=== PATIENT | female | born 1970 | race Caucasian/White ===

== ENCOUNTER 2018-05-31 19:41 | Observation (INO) | payer OTHER, SELFPAY ==
[2018-05-31 19:53] VITALS: BP 152/115; PULSE 108; RESP 16; TEMP 36.7; O2SAT 96; BMI 31.6
--- NOTE | 2018-05-31 20:08 | DI.RAD.S_ITS ---
PROCEDURE: XR CHEST 1V INDICATIONS: chest pain TECHNIQUE: One view of the chest was acquired. COMPARISON: None. FINDINGS: Surgical changes and devices: None. Lungs and pleura: No pleural effusions or pneumothorax. Small calcified granuloma is seen in right lower lung field. No focal infiltrate. Mediastinum: Mediastinal contours appear normal. Heart size is normal. Bones and chest wall: No suspicious bony lesions. Overlying soft tissues appear unremarkable. IMPRESSION: No acute cardiopulmonary pathology. Dictated by: Felix Blanchard M.D. on 05/31/2018 at 20:24 Approved by: Felix Blanchard M.D. on 05/31/2018 at 20:24
--- NOTE | 2018-05-31 20:17 | ED_ITS ---
HPI - Arrhythmia/Palpitations General Chief Complaint: Arrhythmia/Palpitations Stated Complaint: ELEVATED HEARTRATE Time Seen by Provider: 05/31/18 20:02 Source: patient Mode of arrival: ambulatory Limitations: no limitations History of Present Illness HPI narrative: The patient is a 47-year-old female who presents with heart palpitations. She says that she has been monitoring her heart rate she has not felt well all day it is not been below 100 in fact it has been staying around on 110. She wakes up every day with numbness and tingling in both arms. She denies any shortness of breath on exertion. She has been feeling some palpitations off and on today no dizziness or lightheadedness. She has been having some episodes of chest discomfort off and on for awhile. Not truly associated with anything. Today she was worried because her heart she felt was beating faster. She has not had fever cough nausea or vomiting no abdominal pain. She has no prior history of cardiac disease. She states that she used to take lisinopril for blood pressure however she lost weight and no longer takes it however she gained weight back. MD complaint: palpitations Treatments prior to arrival: other (Aspirin at 1000 mg this am) Related Data Home Medications Medication Instructions Recorded Confirmed No Known Home Medications 05/31/18 05/31/18 Review of Systems Review of Systems All systems reviewed & are unremarkable except as noted in HPI and below Constitutional Denies chills, Denies fever(s), Denies lethargy and Denies weakness Cardiovascular Reports as per HPI, Denies dyspnea and Denies dyspnea on exertion Respiratory Denies cough, Denies dyspnea, Denies dyspnea on exertion and Denies wheezing Gastrointestinal Gastrointestinal: Denies abdominal pain, Denies change in bowel habits, Denies diarrhea, Denies nausea and Denies vomiting Musculoskeletal Denies back pain, Denies muscle weakness, Denies numbness and Denies tingling Integumentary/Breasts Denies pruritus, Denies erythema, Denies rash and Denies wounds Neurologic Denies numbness, Denies tingling and Denies weakness Allergic/Immunologic Denies wheezing PFSH Family History Mother Myocardial infarction Social History household members: spouse and children Smoking Status: Former smoker alcohol intake: current Exam Initial Vital Signs Initial Vital Signs: Vital Signs Temperature 98.0 F 05/31/18 19:53 Pulse Rate 108 H 05/31/18 19:53 Respiratory Rate 16 05/31/18 19:53 Blood Pressure 152/115 H 05/31/18 19:53 Pulse Oximetry 96 05/31/18 19:53 GENERAL: Alert overweight female in no acute distress HEENT: Head atraumatic,EOMI, pupils reactive, CARDIOVASCULAR: Regular rate and rhythm without murmurs, rubs or gallops. RESPIRATORY: Breath sounds equal bilaterally, no wheezes rales or rhonchi. ABDOMEN: Soft, nontender. Normoactive bowel sounds all 4 quadrants. No guarding or rebound. EXTREMITIES: Normal range of motion, no clubbing or edema. Neurovascularly intact NEUROLOGICAL: Alert and oriented x4.Normal gait and speech. Cranial nerves II through XII grossly intact. SKIN: Warm, dry, no laceration, no petechiae, no rashes or lesions. Scores HEART Score Heart Score history: Slightly Suspicious Heart Score EKG: Significant ST depression Heart Score Age: 45-64 years old Heart Score risk factors: 1-2 risk factors Heart Score troponin: < or = to normal limit Heart Score Total: 4 PERC Score Age greater than or equal to 50 years: No Heart rate greater than or equal to 100 bpm: Yes Room Air O2 Sat less than 95%: No Unilateral leg swelling: No Recent trauma or surgery: No Hemoptysis: No Prior PE or DVT: No Hormone Use: No Total PERC Score: 1 Wells' Criteria for PE Clinical signs and symptoms of PE: No PE is #1 Dx or equally likely: No Heart rate > 100: Yes Immobilization at least 3 days or surg in previous 4 weeks: No History of PE or DVT: No Hemoptysis: No Malignancy w/Treatment within 6 months or palliative: No Wells' PE Score total: 1.5 Course Orders Ordered: ED Orders 05/31/18 20:08 XR chest 1V Stat EKG-12 Lead Stat 05/31/18 20:10 B Type Natriuretic Peptide Stat Complete Blood Count AUTO DIFF Stat Comprehensive Metabolic Panel Stat D Dimer Stat Lipase Stat Partial Thromboplastin Time Stat Prothrombin Time INR Stat Troponin & CK Cardiac Panel Stat 06/01/18 00:23 Consult to Physician Routine Discontinued Medications Aspirin (Aspirin Chew) 324 mg PO NOW ONE Stop: 05/31/18 20:08 Last Admin: 05/31/18 20:54 Dose: Sodium Chloride (Normal Saline 0.9%) 1,000 mls @ 1,000 mls/hr IV CONT BEVERLY Last Infusion: 05/31/18 23:11 Dose: 0 mls/hr Admin: 05/31/18 20:54 Dose: 1,000 mls/hr Ketorolac Tromethamine (Toradol) 30 mg IV NOW ONE Stop: 05/31/18 22:25 Last Admin: 05/31/18 22:28 Dose: 30 mg Vital Signs - 8 hr 05/31/18 19:53 05/31/18 21:05 05/31/18 21:30 Temperature 98.0 F Pulse Rate 108 H 104 H 94 H Respiratory Rate 16 12 18 Blood Pressure 152/115 H Blood Pressure [Left Arm] 147/95 H 125/84 H Pulse Oximetry 96 96 98 05/31/18 22:24 05/31/18 23:02 06/01/18 00:22 Temperature Pulse Rate 97 H 90 88 Respiratory Rate 14 18 Blood Pressure 144/80 H Blood Pressure [Left Arm] 137/77 H 144/70 H Pulse Oximetry 96 100 99 06/01/18 00:47 Temperature 98.1 F Pulse Rate 91 H Respiratory Rate 16 Blood Pressure 147/96 H Blood Pressure [Left Arm] Pulse Oximetry 97 MDM - Arrhythmia/Palpitations Lab Data Attestation: I reviewed the patient's lab results. Result diagrams: 05/31/18 20:10 05/31/18 20:10 Lab Results 05/31/18 05/31/18 05/31/18 Range/Units 20:10 20:10 20:10 WBC 8.0 (4.5-11.0) X10^3/uL RBC 5.03 (4.0-5.2) X10^6/uL Hgb 14.9 (12.0-16.0) g/dL Hct 43.9 (36-46) % MCV 87.2 (80-100) fL MCH 29.6 (26-34) PG MCHC 34.0 (30-36) % RDW 13.6 (11.6-14.8) % Plt Count 233 (150-400) X10^3/uL Neut % (Auto) 57.6 (50-75) % Lymph % (Auto) 33.8 (25-40) % Mellette % (Auto) 6.0 (3-14) % Eos % (Auto) 2.0 (2-4) % Baso % (Auto) 0.6 (0-2) % Neut # (Auto) 4600 (7622-8913) /uL PT 11.2 (10.1-12.7) SECONDS INR 1.0 (0.9-1.3) APTT 30 (26.4-36.2) SECONDS D-Dimer < 200 (<230) ng/mL Sodium (137-145) mmol/L Potassium (3.4-5.1) mmol/L Chloride (98-107) mmol/L Carbon Dioxide (22-32) mmol/L BUN (7-17) mg/dL Creatinine (0.52-1.04) mg/dL Estimated GFR (>60) mL/min BUN/Creatinine Ratio (6-22) Glucose (70-100) mg/dL Calcium (8.4-10.2) mg/dL Total Bilirubin (0.2-1.3) mg/dL AST (14-36) IU/L ALT (9-52) IU/L Alkaline Phosphatase (38-126) U/L Total Creatine Kinase (30-135) U/L CK-MB (CK-2) (<2.37) ng/mL CK-MB (CK-2) Rel Index (1.5-5.0) % Troponin I (0.01-0.034) ng/mL B-Natriuretic Peptide < 29.4 (<100) Total Protein (6.3-8.2) g/dL Albumin (3.5-5.0) g/dL Globulin (1.7-4.1) g/dL Albumin/Globulin Ratio (1.0-2.8) Lipase (23-300) U/L // Range/Units 20:10 WBC (4.5-11.0) X10^3/uL RBC (4.0-5.2) X10^6/uL Hgb (12.0-16.0) g/dL Hct (36-46) % MCV (80-100) fL MCH (26-34) PG MCHC (30-36) % RDW (11.6-14.8) % Plt Count (150-400) X10^3/uL Neut % (Auto) (50-75) % Lymph % (Auto) (25-40) % Mellette % (Auto) (3-14) % Eos % (Auto) (2-4) % Baso % (Auto) (0-2) % Neut # (Auto) (4801-6796) /uL PT (10.1-12.7) SECONDS INR (0.9-1.3) APTT (26.4-36.2) SECONDS D-Dimer (<230) ng/mL Sodium 144 (137-145) mmol/L Potassium 3.0 L (3.4-5.1) mmol/L Chloride 99 (98-107) mmol/L Carbon Dioxide 27 (22-32) mmol/L BUN 16 (7-17) mg/dL Creatinine 0.90 (0.52-1.04) mg/dL Estimated GFR > 60.0 (>60) mL/min BUN/Creatinine Ratio 17.8 (6-22) Glucose 89 (70-100) mg/dL Calcium 10.7 H (8.4-10.2) mg/dL Total Bilirubin 0.4 (0.2-1.3) mg/dL AST 41 H (14-36) IU/L ALT 37 (9-52) IU/L Alkaline Phosphatase 38 (38-126) U/L Total Creatine Kinase 211 H (30-135) U/L CK-MB (CK-2) 1.40 (<2.37) ng/mL CK-MB (CK-2) Rel Index 0.7 L (1.5-5.0) % Troponin I < 0.012 (0.01-0.034) ng/mL B-Natriuretic Peptide (<100) Total Protein 7.7 (6.3-8.2) g/dL Albumin 4.8 (3.5-5.0) g/dL Globulin 2.9 (1.7-4.1) g/dL Albumin/Globulin Ratio 1.7 (1.0-2.8) Lipase 138 (23-300) U/L Imaging Data Chest x-ray: Radiologist's impression: PROCEDURE: XR CHEST 1V INDICATIONS: chest pain TECHNIQUE: One view of the chest was acquired. COMPARISON: None. FINDINGS: Surgical changes and devices: None. Lungs and pleura: No pleural effusions or pneumothorax. Small calcified granuloma is seen in right lower lung field. No focal infiltrate. Mediastinum: Mediastinal contours appear normal. Heart size is normal. Bones and chest wall: No suspicious bony lesions. Overlying soft tissues appear unremarkable. IMPRESSION: No acute cardiopulmonary pathology. Dictated by: Felix Blanchard M.D. on 05/31/2018 at 20:24 ECG Data Attestation: I personally reviewed and interpreted this ECG as follows: Prior ECG tracings: available for review Interpretation: EKG 1.: Normal sinus rhythm, rate 116 be 1 through V5 with some ST depressions. Q-waves noted in lead 3 fascicular block no acute ST changes EKG 2.: Sinus rhythm rate 106 persistent T-wave inversions no acute ST elevations slightly improved from prior MDM Narrative Medical decision making narrative: Patient has been having chest discomfort off and on with increased palpitations today. EKG does have some T-wave inversions and ST depressions in precordial leads. She remains chest pain-free in the ED. Heart rate has decreased. Her D-dimer is negative and she is low risk for any PE. Her EKG is concerning there are no previous EKG. She does not have any ST elevations and her troponin is negative. She does have significant family history of mother. She also is obese. She states that she was taking lisinopril for hypertension however she lost weight 10 no longer is taking it. Unfortunately she did gain some of that weight back. Dr. Vaz, has been updated on test results and symptoms. Agrees with chest pain obvious Discharge Plan Departure Patient Disposition: Admitted as Observation Clinical Impression: Chest pain Discharge Date/Time: 06/01/18 00:25 Interventions: ED Discharge Assessment Last Done: 06/01/18 00:22 Admit Date/Time: 05/31/18 22:44 Admit Provider: Lasha Vuong
[2018-05-31 20:48] LABS: Add Manual Diff / Slide Review NO; Basophils Percent Auto 0.6 % (0-2); Hematocrit 43.9 % (36-46); Hemoglobin 14.9 g/dL (12.0-16.0); Lymphocytes Percent Auto 33.8 % (25-40); Mean Corpuscular Hemoglobin 29.6 PG (26-34); Mean Corpuscular Volume 87.2 fL (80-100); Neutrophils Absolute Auto 4600 /uL (3000-5900); Neutrophils Percent Auto 57.6 % (50-75); Platelet Count 233 X10^3/uL (150-400); Red Blood Cell Count 5.03 X10^6/uL (4.0-5.2); Red Cell Distribution Width 13.6 % (11.6-14.8)
[2018-05-31] MEDS: SODIUM CHLORIDE 0.9% 1,000 ML 1000 ML IV (20:54)
[2018-05-31 20:58] LABS: Prothrombin Time 11.2 SECONDS (10.1-12.7)
[2018-05-31 21:00] LABS: PTT Partial Thromboplastin Tim 30 SECONDS (26.4-36.2)
[2018-05-31 21:05] VITALS: BP 147/95; PULSE 104; RESP 12; O2SAT 96
[2018-05-31 21:07] LABS: D Dimer < 200 ng/mL (<230)
[2018-05-31 21:08] LABS: Alanine Aminotransferase 37 IU/L (9-52); Albumin 4.8 g/dL (3.5-5.0); Albumin Globulin Ratio 1.7 (1.0-2.8); Alkaline Phosphatase 38 U/L (38-126); Aspartate Aminotransferase 41 IU/L (14-36); BUN Creatinine Ratio 17.8 (6-22); Bilirubin Total 0.4 mg/dL (0.2-1.3); Blood Urea Nitrogen 16 mg/dL (7-17); Calcium 10.7 mg/dL (8.4-10.2); Carbon Dioxide 27 mmol/L (22-32); Chloride 99 mmol/L (98-107); Creatine Kinase 211 U/L (30-135); Estimated Glomerular Filt Rate > 60.0 mL/min (>60); Globulin 2.9 g/dL (1.7-4.1); Glucose 89 mg/dL (70-100); HEMOLYSIS < 15 (0-50); Lipase 138 U/L (23-300); Sodium 144 mmol/L (137-145); Total Protein 7.7 g/dL (6.3-8.2)
[2018-05-31 21:14] LABS: B Type Natriuretic Peptide < 29.4 (<100)
[2018-05-31 21:24] LABS: CKMB % Relative Index 0.7 % (1.5-5.0)
[2018-05-31 21:25] LABS: Troponin I < 0.012 ng/mL (0.01-0.034)
[2018-05-31 21:30] VITALS: BP 125/84; PULSE 94; RESP 18; O2SAT 98
[2018-05-31 22:24] VITALS: BP 137/77; PULSE 97; O2SAT 96
[2018-05-31] MEDS: KETOROLAC 60 MG/2 ML VIAL 30 MG IV (22:28)
[2018-05-31 23:02] VITALS: BP 144/70; PULSE 90; RESP 14; O2SAT 100
[2018-06-01] VITALS (9 sets, daily range): BP systolic 122–147; BP diastolic 65–97; PULSE 68–91; RESP 16–18; TEMP 36.5–36.7; O2SAT 94–99; BMI 39.3
--- NOTE | 2018-06-01 02:07 | PC.ADMIT ---
Addendum entered by Lucinda Grimm R.N. 06/01/18 06:33: Slept at intervals. States headache and left chest pain continues to be 2/10 but states is tolerable. Up in room independently. 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 Patient's smoking status: Former smoker. Vital Signs - 8 hr 05/31/18 19:53 05/31/18 21:05 05/31/18 21:30 Temperature 98.0 F Pulse Rate 108 H 104 H 94 H Respiratory Rate 16 12 18 Blood Pressure 152/115 H Blood Pressure [Left Arm] 147/95 H 125/84 H Pulse Oximetry 96 96 98 05/31/18 22:24 05/31/18 23:02 06/01/18 00:22 Temperature Pulse Rate 97 H 90 88 Respiratory Rate 14 18 Blood Pressure 144/80 H Blood Pressure [Left Arm] 137/77 H 144/70 H Pulse Oximetry 96 100 99 06/01/18 00:47 Temperature 98.1 F Pulse Rate 91 H Respiratory Rate 16 Blood Pressure 147/96 H Blood Pressure [Left Arm] Pulse Oximetry 97 Admitted to room 210 per wheelchair from ER. Is alert and oriented. Breath sounds CTA with RA sat of 97%. HRR; connected to telemetry. Denies nausea. BT present and abdomen is soft. Denies dysuria or incontinence. Independent with mobility. Having 1-2/10 left sided headache and chest discomfort but states it is tolerable. Fall risk score is medium; bed alarm not used but reminded patient to call for assist when out of bed if experiencing any palpitations, dizziness or lightheadedness; verbalizes understanding.
--- NOTE | 2018-06-01 09:02 | PM.HP.1 ---
History of Present Illness Date Patient Seen: 06/01/18 Time Patient Seen: 08:03 Chief complaint: ELEVATED HEART RATE Narrative: THIS 47-YEAR-OLD LADY CAME TO THE ER BECAUSE SHE FOUND THE WRIST WATCH THE MONITORS HER HEART RATE SHOWED A HIGH RATE OF 146 SHE HAD JUST BEEN MOWING THE YARD WITH A PUSH MOWER NOTED SELF-PROPELLED SHE ALSO COMPLAINS OF SOME CHEST PAIN ACROSS THE FRONT OF THE CHEST NO RADIATION SHE IS WORRIED BECAUSE HER MOTHER HAD HYPERTENSION AND CARDIAC ARREST AT THE AGE OF 51 FOR A GRANDMOTHER HAD A QUADRUPLE BYPASS AT IN THE MID 50S CURRENTLY SHE COMPLAINS OF PERSISTENT CONTINUOUS PAIN IN THE CHEST THOUGH SHE DOES NOT APPEAR TO BE IN ANY DISTRESS SHE IS A NONSMOKER Patient History Family & Social History Family History: Reviewed 06/01/18 by Lasha Vuong MD Social History: household members spouse,children Prior Living Arrangements House Safety & Behavioral: Feels Safe in Current Yes Environment Been Physically Hurt or No Threatened By a Person Suicidal Ideation Description None Suicide Plan Description No Plan Tobacco & Substance use: Smoking Status Former smoker alcohol intake current alcohol intake frequency a few times a week Substance Use Type does not use Meds Home Medications Medication Instructions Recorded Confirmed Type No Known Home Medications 05/31/18 05/31/18 History Review of Systems Review of Systems All systems reviewed & are unremarkable except as noted in HPI and below Exam Vital Signs (past 8 hours): - 06/01/18 06:01 06/01/18 07:45 Temperature 98.0 F 98.0 F Pulse Rate 78 68 Respiratory Rate 16 16 Blood Pressure 144/85 H 146/97 H Pulse Oximetry 97 98 Oxygen Delivery Method Room Air Oxygen Flow Rate 0 Const General: cooperative, healthy appearing, comfortable and well developed [facility] Head: normal to inspection, normocephalic and atraumatic Ears: hearing grossly normal bilaterally Nose: external nose normal Face and sinus: normal facial exam Eyes General: appearance normal, both eyes and all related structures Eyelids: eyelids normal Conjunctivae: conjunctivae normal Sclera: sclerae normal Pupils: PERRL EOM: EOM intact bilaterally Neck Neck: normal visual inspection Thyroid: thyroid normal Resp Effort & Inspection: normal respiratory effort and able to speak in complete sentences Auscultation: clear to auscultation bilaterally Cardio Palpation: normal PMI Rate: regular rate Rhythm: regular rhythm Heart Sounds: S1 normal and S2 normal GI Inspection: normal to inspection Palpation: soft Back/Spine/Pelvis Back: normal to inspection Skin General: no rashes or lesions noted Neuro General: alert, awake and oriented x3 Cranial Nerves: CN's II-XI intact bilaterally Cognition: normal cognition Speech: speech normal Motor: muscle tone normal throughout Extrem General: normal to inspection Psych Appearance: grossly normal Mood: congruent mood Affect: normal affect Attitude: cooperative Thought Process: normal Thought Content: normal Judgment: judgment good Objective Labs Result Diagrams: 05/31/18 20:10 05/31/18 20:10 Labs: Laboratory Results - last 24 hr 05/31/18 05/31/18 05/31/18 20:10 20:10 20:10 WBC 8.0 RBC 5.03 Hgb 14.9 Hct 43.9 MCV 87.2 MCH 29.6 MCHC 34.0 RDW 13.6 Plt Count 233 Neut % (Auto) 57.6 Lymph % (Auto) 33.8 Baker % (Auto) 6.0 Eos % (Auto) 2.0 Baso % (Auto) 0.6 Neut # (Auto) 4600 PT 11.2 INR 1.0 APTT 30 D-Dimer < 200 Sodium Potassium Chloride Carbon Dioxide BUN Creatinine Estimated GFR BUN/Creatinine Ratio Glucose Calcium Total Bilirubin AST ALT Alkaline Phosphatase Total Creatine Kinase CK-MB (CK-2) CK-MB (CK-2) Rel Index Troponin I B-Natriuretic Peptide < 29.4 Total Protein Albumin Globulin Albumin/Globulin Ratio Lipase 05/31/18 20:10 WBC RBC Hgb Hct MCV MCH MCHC RDW Plt Count Neut % (Auto) Lymph % (Auto) Baker % (Auto) Eos % (Auto) Baso % (Auto) Neut # (Auto) PT INR APTT D-Dimer Sodium 144 Potassium 3.0 L Chloride 99 Carbon Dioxide 27 BUN 16 Creatinine 0.90 Estimated GFR > 60.0 BUN/Creatinine Ratio 17.8 Glucose 89 Calcium 10.7 H Total Bilirubin 0.4 AST 41 H ALT 37 Alkaline Phosphatase 38 Total Creatine Kinase 211 H CK-MB (CK-2) 1.40 CK-MB (CK-2) Rel Index 0.7 L Troponin I < 0.012 B-Natriuretic Peptide Total Protein 7.7 Albumin 4.8 Globulin 2.9 Albumin/Globulin Ratio 1.7 Lipase 138 Assessment & Plan Plan: Assessment/Plan Narrative: CHEST PAIN AND PALPITATIONS WITH TACHYCARDIA AND TROPONINS NEGATIVE POSITIVE FAMILY HISTORY OF EARLY CORONARY ARTERY DISEASE WILL LET IT GET A NUCLEAR MED MYOCARDIAL PERFUSION SCAN OBESITY WILL RECOMMEND WEIGHT LOSS Time Spent With Patient Time with patient: Greater than 35 minutes
[2018-06-01] MEDS: SODIUM CHLORIDE 0.9% FLUSH 10 ML IV ×2 (09:13→20:22)
[2018-06-01] MEDS: ENOXAPARIN 40 MG/0.4 ML SYRINGE SUBCUT (09:13)
--- NOTE | 2018-06-01 11:44 | CM.DANOTE ---
DCP Chart Review Patient is a 47 year old female who was admitted OBS STATUS on 05/31/18 for Elevated Heart Rate. Pt has [employer] for insurance and her PCP is not listed. EMR was reviewed. Per MD, pt to have stress test ordered today due to family hx. Plan: SW to follow after stress test to determine if pt is safe for d/c home when medically stable. No SW needs at this time, please refer if indicated. DIEGO Steinre
--- NOTE | 2018-06-01 13:43 | P.PCN_ITS ---
Cardiac Stress Test Report Referral & Results Date Patient Seen: 06/01/18 Time Patient Seen: 13:42 Indication: Palpitations/chest pain Rest ECG: Unremarkable Procedure Note: Today following both written and verbal informed consent the patient was exercised according to a standard Koko protocol patient went for a total of 8 min 13 sec achieving a maximum heart rate of 150 to maximum systolic blood pressure of 200. This is approximately 10.1 METS. Exercise was terminated at this point because of targets having been met. Patient was also given Cardiolite through a previously started Hep-Lock IV by the nuclear criticality safety engineer approximately 1 minute prior to the cessation of exercise. There are no ST segment changes noted Normal heart rate response to exercise Patient was hypertensive to start remained hypertensive throughout No dysrhythmias were identified Functional aerobic impairment rated-10% on the sedentary scale or 10% better than average Impression: No evidence of ischemia Hypertension that probably should be addressed No dysrhythmias Perfusion imaging will be reported separately Please note: Actual ECG tracings can be found in the PACS system.
[2018-06-01] MEDS: LORazepam 2 MG/ML SYRINGE 1 MG IV ×2 (14:33→15:10)
--- NOTE | 2018-06-01 15:45 | PC.NURSE ---
1510 Received call from Student Records Specialist to inform this RN that pt needed additional dose of ativan IV. Pt had been given IV ativan at 1425 in anticipation of Nuc med scan (pt had been unable to do scan earlier in the day d/t severe clausterphobia). Ativan IV 1 mg administered without incident. Pt now returned to floor, A and O x3.
[2018-06-02] VITALS (7 sets, daily range): BP systolic 139–161; BP diastolic 83–95; PULSE 70–81; RESP 16; TEMP 36.7–36.8; O2SAT 97–100
--- NOTE | 2018-06-02 03:18 | PC.NURSE ---
Addendum entered by Lucinda Grimm R.N. 06/02/18 06:02: Head/chest pain remains unchanged but states pain is tolerable. Up independently to the bathroom. Has been NPO since 414 for reported additional stress testing this morning. Original Note: Sleeping soundly since start of shift. Now awakened for assessment. Is alert and oriented. Breath sounds CTA with RA sat of 99%. HRR with 0000 telemetry reading of SR. Denies nausea. BT present and abdomen is soft. Independent with mobility. Does admit to intermittent left chest/left sided headache but has only Morphine ordered for pain and declines to have MD contacted for Tylenol order. Fall risk score is medium but bed alarm is not felt to be needed at this time.
[2018-06-02] MEDS: ENOXAPARIN 40 MG/0.4 ML SYRINGE SUBCUT (09:20)
[2018-06-02] MEDS: SODIUM CHLORIDE 0.9% FLUSH 10 ML IV (09:20)
[2018-06-02] MEDS: LORazepam 2 MG/ML SYRINGE IV (10:31)
--- NOTE | 2018-06-02 13:51 | DI.NM.S_ITS ---
DATE OF SERVICE: 06/01/2018 PROCEDURE: Exercise perfusion study. INDICATIONS: Chest pain with family history of coronary artery disease. RADIOPHARMACEUTICAL: 24.7 mCi technetium-99m Myoview IV was injected at stress and 25.1 mCi technetium-99m Myoview IV was injected at rest. CARDIAC STRESS: Patient underwent exercise perfusion study under the supervision of an attending staff using Koko protocol. She walked on Koko protocol for 8 minutes 13 seconds achieved 87% of target heart rate. Patient had hypertensive blood pressure response. Peak blood pressure was 200/100. She achieved 10.1 METs of workload. Functional aerobic impairment +5%. Had some shortness of breath. EKG revealed sinus rhythm with some nonspecific diffuse anterior inferior T-wave inversion. During exercise, T-wave got upright. There was no inducible significant ST ischemic changes. No new significant arrhythmias. RAW DATA: There was significant breast shadow seen. Patient's weight is 236 pounds. GATED STUDY: Stress LV ejection fraction 84%. I don't see any obvious wall motion abnormalities. Resting end-diastolic volume is 103 mL. TID ratio is 1.00, which is within normal limits. Lung/heart ratio is 0.32, which is within normal limits. MYOCARDIAL PERFUSION SCAN: Please note that this patient is not have any prone images. Stress supine images were compared with Resting supine images. It appears to be that patient has predominantly fixed small-sized moderately decreased perfusion of anterior apex. CONCLUSION: No obvious reversible ischemia on perfusion scan. Patient has predominantly fixed small-sized moderately decreased perfusion of the anterior apex. Patient has large breast shadow. Gated study revealed normal movement of the apex. Hence, most likely we are dealing with breast tissue attenuation artifact. In the absence of prone images, it's difficult to distinguish whether it is tissue attenuation artifact or possibility of non-transmural myocardial infarction of the anterior apex but based on the raw data findings, most likely we are dealing with breast tissue attenuation artifact. Overall, this is a low- risk myocardial perfusion scan. Clinical correlation is recommended. Nasra Gale - [facility]/lashanda/ doc#: [id number]/job#: [id number] dd: 06/02/2018 13:05:00 dt: 06/02/2018 13:40:00 DICTATING MD/COPIES TO: Ke Ledezma MD COPIES MNE: [id number]
[2018-06-02 14:57] LABS: Add Manual Diff / Slide Review NO; Basophils Percent Auto 0.9 % (0-2); Eosinophils Percent Auto 1.7 % (2-4); Hematocrit 45.4 % (36-46); Hemoglobin 15.2 g/dL (12.0-16.0); Lymphocytes Percent Auto 27.1 % (25-40); Mean Corpuscular HGB Conc 33.6 % (30-36); Mean Corpuscular Hemoglobin 29.2 PG (26-34); Monocytes Percent Auto 5.2 % (3-14); Neutrophils Absolute Auto 5700 /uL (3000-5900); Neutrophils Percent Auto 65.1 % (50-75); Platelet Count 218 X10^3/uL (150-400); Red Blood Cell Count 5.22 X10^6/uL (4.0-5.2); Red Cell Distribution Width 13.9 % (11.6-14.8); White Blood Cell Count 8.8 X10^3/uL (4.5-11.0)
[2018-06-02 15:36] LABS: BUN Creatinine Ratio 18.9 (6-22); Blood Urea Nitrogen 17 mg/dL (7-17); Calcium 10.2 mg/dL (8.4-10.2); Carbon Dioxide 34 mmol/L (22-32); Chloride 97 mmol/L (98-107); Estimated Glomerular Filt Rate > 60.0 mL/min (>60); Glucose 104 mg/dL (70-100); HEMOLYSIS < 15 (0-50); Potassium 3.5 mmol/L (3.4-5.1); Sodium 141 mmol/L (137-145)
--- NOTE | 2018-06-03 08:44 | PM.DS.1 ---
History of Present Illness Chief complaint: ELEVATED HEART RATE Narrative: THIS 47-YEAR-OLD LADY CAME TO THE ER BECAUSE SHE FOUND THE WRIST WATCH THE MONITORS HER HEART RATE SHOWED A HIGH RATE OF 146 SHE HAD JUST BEEN MOWING THE YARD WITH A PUSH MOWER NOTED SELF-PROPELLED SHE ALSO COMPLAINS OF SOME CHEST PAIN ACROSS THE FRONT OF THE CHEST NO RADIATION SHE IS WORRIED BECAUSE HER MOTHER HAD HYPERTENSION AND CARDIAC ARREST AT THE AGE OF 50 FOR A GRANDMOTHER HAD A QUADRUPLE BYPASS AT IN THE MID 50S CURRENTLY SHE COMPLAINS OF PERSISTENT CONTINUOUS PAIN IN THE CHEST THOUGH SHE DOES NOT APPEAR TO BE IN ANY DISTRESS SHE IS A NONSMOKER Discharge Providers Date of admission: 05/31/18 22:44 Consults: 06/01/18 00:23 Consult to Physician Routine Comment: Consulting Provider: Lasha Vuong Reason for consultation: admission Has provider been notified: Yes Discharge provider: Karen Vuong MD Summary Discharge Diagnosis: CHEST PAIN LOW RISK FOR OBSTRUCTIVE CORONORY DISEASE PER CARDIOLOGY NM PERFUSION SCAN REPORT ANXIETY DISORDER Hospital Course: VERY PLEASANT 47-YEAR-OLD WAS ADMITTED FOLLOWING CHEST DISCOMFORT PALPITATION RIGHT AFTER SHE HAD FINISHED MOWING HER YD SINCE SHE HAD A POSITIVE FAMILY HISTORY OF HER MOTHER HAVING CARDIAC ARREST IN THE EARLY 50S AND SHE PRESENTED TO THE ER WORKUP WITH A NUCLEAR MEDICINE PERFUSION SCAN WAS REPORTED LOW RISK FOR OBSTRUCTIVE CORONARY DISEASE AND SHE HAS BEEN REASSURED AND DISCHARGED ON NO SPECIFIC MEDICATION BUT SHE NEEDS TO BE A HEATING HEART HEALTHY AND LOSE WEIGHT WILL HAVE TO FOLLOW UP WITH HER FAMILY PHYSICIAN TO SEE IF SHE NEEDS THEM TREATMENT FOR ANY RISK FACTOR LIKE BLOOD PRESSURE AND LIPIDS Time Spent with Patient Greater than 30 minutes Exam Vital Signs (past 8 hours): Oxygen Delivery Method Room Air Oxygen Flow Rate 0 Objective Labs Result Diagrams: 06/02/18 14:42 06/02/18 14:42 Labs: Laboratory Results - last 24 hr 06/02/18 06/02/18 14:42 14:42 WBC 8.8 RBC 5.22 H Hgb 15.2 Hct 45.4 MCV 87.0 MCH 29.2 MCHC 33.6 RDW 13.9 Plt Count 218 Neut % (Auto) 65.1 Lymph % (Auto) 27.1 [place]ata[place]oula % (Auto) 5.2 Eos % (Auto) 1.7 L Baso % (Auto) 0.9 Neut # (Auto) 5700 Sodium 141 Potassium 3.5 Chloride 97 L Carbon Dioxide 34 H BUN 17 Creatinine 0.90 Estimated GFR > 60.0 BUN/Creatinine Ratio 18.9 Glucose 104 H Calcium 10.2 Discharge Plan Discharge Plan Patient Disposition: Home Provider Discharge Instructions Diet: Regular Discharge Data Attending Provider: Lasha Vuong Admit Date/Time: 05/31/18 22:44 Discharges patient from system. Discharge Date/Time: 06/02/18 18:14
== END 2018-06-02 18:14 | disposition home or self-care (01) ==
LOC: ED 22:36 → AC 22:45
PROVIDERS: Admitting Provider Internal Medicine; Emergency Provider Emergency Medicine; Visit Provider Internal Medicine
DX: R07.9 Chest pain, unspecified (principal); R00.2 Palpitations; F41.9 Anxiety disorder, unspecified; Z87.891 Personal history of nicotine dependence; E66.9 Obesity, unspecified
CPT/HCPCS: 36591; 71045; 78452; 80048; 80053; 81003; 81025; 82550; 82553; 83690; 83880; 84484; 85025; 85379; 85610; 85730; 93005; 93010; 93016; 93017; 93018; 96361; 96374; 99283; 99285; G0378; A9502; J1650; J1885; J2060